=== PATIENT | female | born 1950 | race Caucasian/White ===

== ENCOUNTER 2017-10-23 13:13 | Emergency (ER) | payer MEDICARE, OTHER ==
[~2017-10-23] VITALS: Ht 157.5 cm; Wt 54.4 kg
[2017-10-23] MEDS ORDERED: AZITHROMYCIN 2250 MG PO (13:40)
[2017-10-23] MEDS ORDERED: NORVASC5 MG PO (13:40)
[2017-10-23] MEDS ORDERED: VITAMINC500 PO (13:40)
[2017-10-23] MEDS ORDERED: TESSALON PERLE100 MG PO (13:40)
[2017-10-23 13:42] LABS: URINE BILIRUBIN NEGATIVE (Negative); URINE BLOOD NEGATIVE (Negative); URINE CLARITY CLEAR; URINE COLOR YELLOW; URINE GLUCOSE-RANDOM 2+ (Negative); URINE KETONES NEGATIVE (Negative); URINE LEUKOCYTES-REFLEX NEGATIVE (Negative); URINE NITRITE-REFLEX NEGATIVE (Negative); URINE PROTEIN NEGATIVE (Negative); URINE SPECIFIC GRAVITY >= 1.030 (1.005-1.030); URINE UROBILINOGEN 0.2 E.U./dl (0.2-1.0)
[2017-10-23] MEDS ORDERED: TUMS PO (13:43)
[2017-10-23] MEDS ORDERED: VITAMIN D31000 UNIT PO (13:44)
[2017-10-23] MEDS ORDERED: CARVEDILOL12.5 MG PO (13:44)
[2017-10-23] MEDS ORDERED: CLOBETASOL PROP50 M1 TOP (13:45)
[2017-10-23] MEDS ORDERED: CYMBALTA60 MG PO (13:45)
[2017-10-23] MEDS ORDERED: NEURONTIN 300300 M1 PO (13:46)
[2017-10-23] MEDS ORDERED: IRON325 PO (13:46)
[2017-10-23] MEDS ORDERED: NEXIUM40 MG PO (13:46)
[2017-10-23] MEDS ORDERED: LEVEMIR100 UNIT/1 INJECTION (13:49)
[2017-10-23] MEDS ORDERED: ONDANSETRON HCL4 M2 PO (13:50)
[2017-10-23] MEDS ORDERED: CLARITIN10 MG PO (13:50)
[2017-10-23] MEDS ORDERED: METFORMIN HCL500 MG PO (13:50)
[2017-10-23] MEDS ORDERED: PRINIVIL20 MG PO (13:50)
[2017-10-23] MEDS ORDERED: JANUVIA100 MG PO (13:51)
[2017-10-23] MEDS ORDERED: ZOCOR20 MG PO (13:51)
[2017-10-23] MEDS ORDERED: REQUIP 1 MG TABL1 M1 PO (13:51)
[2017-10-23] MEDS ORDERED: TRAMADOL HCL50 MG PO (13:51)
[2017-10-23 13:59] LABS: ABSOLUTE EOSINOPHILS 0.2 thou/uL (0.0-0.7); ABSOLUTE LYMPHOCYTES 1.1 thou/uL (0.8-5.3); ABSOLUTE MONOCYTES 0.6 thou/uL (0.0-1.2); ABSOLUTE NEUTROPHILS 6.7 thou/uL (1.6-8.1); BASOPHILS 0.6 %; EOSINOPHILS 2.5 %; HEMATOCRIT 42.9 % (37.0-47.0); HEMOGLOBIN 14.3 gm/dL (12.0-15.0); LYMPHOCYTES 12.4 %; MCHC 33.4 g/dL (28.0-37.0); MCV 89.9 fL (80.0-100.0); MONOCYTES 6.8 %; MPV 9.6 fl. (7.2-11.1); NUCLEATED RBCS 0 /100WBC; PLATELET COUNT* 194 thou/uL (150-400); POLYS 77.7 %; RBC 4.77 mil/uL (4.20-5.00); RDW-CV 12.9 % (10.5-14.5); WBC 8.6 thou/uL (4.0-11.0)
[2017-10-23 14:09] LABS: ANION GAP 10 mmol/L (7-16); BUN 18 mg/dL (7-18); CALCIUM 9.8 mg/dL (8.5-10.1); CHLORIDE 99 mmol/L (98-107); CO2 24 mmol/L (21-32); CREATININE 0.7 mg/dL (0.6-1.3); GLUCOSE 252 mg/dL (70-99); POTASSIUM 5.1 mmol/L (3.5-5.1); SODIUM 133 mmol/L (136-145)
[2017-10-23 14:21] LABS: ALBUMIN 3.5 g/dL (3.4-5.0); ALKALINE PHOSPHATASE 88 U/L (46-116); LIPASE 122 U/L (73-393); SGOT 40 U/L (15-37); SGPT 49 U/L (30-65); TOTAL BILIRUBIN 0.4 mg/dL (<0.1-1.0); TOTAL PROTEIN 8.2 g/dL (6.4-8.2); TROPONIN-I LEVEL <0.06 ng/mL (<0.06)
[2017-10-23 15:34] VITALS: BP 125/69
[2017-10-23] MEDS ORDERED: HYDROCODONE-AP1 EAC6 PO (15:36)
== END 2017-10-23 15:35 | disposition home or self-care (01) ==
LOC: M.ERS 13:13
PROVIDERS: Physician Assistant
DX: R10.9 Unspecified abdominal pain (principal); E11.65 Type 2 diabetes mellitus with hyperglycemia; M19.90 Unspecified osteoarthritis, unspecified site; M79.7 Fibromyalgia; E11.40 Type 2 diabetes mellitus with diabetic neuropathy, unspecified; I10 Essential (primary) hypertension; Z90.710 Acquired absence of both cervix and uterus; Z88.8 Allergy status to other drugs, medicaments and biological substances